=== PATIENT | female | born 1950 | race Caucasian/White ===

== ENCOUNTER 2022-05-05 15:49 | Emergency (ER) | payer MEDICARE ==
[~2022-05-05] VITALS: Ht 157.5 cm; Wt 56.0 kg
[2022-05-05 17:08] VITALS: BP 175/83
[2022-05-05 17:31] VITALS: BP 144/78
== END 2022-05-05 17:45 | disposition home or self-care (01) ==
LOC: EDBD 15:49 → ED 15:49
DX: S00.83XA Contusion of other part of head, initial encounter (principal); S00.12XA Contusion of left eyelid and periocular area, initial encounter; E05.00 Thyrotoxicosis with diffuse goiter without thyrotoxic crisis or storm; E78.5 Hyperlipidemia, unspecified; W22.09XA Striking against other stationary object, initial encounter